=== PATIENT | female | born 1950 | race Two or more races ===

== ENCOUNTER 2018-09-11 20:25 | Emergency (ER) | payer MEDICARE, BC ==
[~2018-09-11] VITALS: Ht 154.9 cm; Wt 59.0 kg
--- NOTE | 2018-09-11 20:49 | NUR ---
NEAR SYNCOPAL EPISODE WHILE HAVING DINNER. -TRAUMA. +N/V INSURANCE SALES ASSOCIATE. PT STATED DURING DINNER, FELT DIZZY, AND COLD SWEATS. PER EMS, PT WAS HYPOTENSIVE WITH SYS BP IN THE HIGH 90'S. PT STATES SHE HAS NO SOB, -CP, -N/V AT TIME OF ARRIVAL, - DIZZINESS. PT PLACED ON BIG DATA ADMIN AND POX. PT SAFETY AND COMFORT MEASURES IN PLACE. NO S.S OF ACUTE DISTRESS NOTED. RR EVEN AND UNLABORED. MD BEDSIDE FOR EVAL. FAMILY BEDSIDE WITH PT.
[2018-09-11 21:08] LABS: BASOPHILS # (AUTO) 0.1 /CMM (0.0-0.2); HEMOGLOBIN 12.4 g/dL (11.5-14.8); LYMPHOCYTES # (AUTO) 2.7 /CMM (0.8-4.8); NEUTROPHILS # (AUTO) 5.9 /CMM (1.8-8.9); RED BLOOD CELL COUNT(AUTO) 6.08 MIL/uL (4.0-5.2); WHITE BLOOD COUNT (AUTO) 9.6 K/uL (4.3-11.0)
[2018-09-11 21:17] LABS: BASOPHILS % (AUTO) 0.9 % (0.0-2.0); EOSINOPHILS % (AUTO) 3.2 % (0.0-6.0); HEMATOCRIT 38 % (33-45); LYMPHOCYTES % (AUTO) 27.8 % (20.0-44.0); MEAN CORPUSCULAR HGB CONC 32 g/dl (31.0-36.0); MEAN CORPUSCULAR VOLUME 63 fL (82-100); MONOCYTES # (AUTO) 0.7 /CMM (0.1-1.30); MONOCYTES % (AUTO) 7.2 % (2.0-12.0); NEUTROPHILS % (AUTO) 60.9 % (43.0-81.0); PLATELET COUNT (AUTO) 230 /CMM (150-450)
[2018-09-11 21:20] LABS: CALCIUM, SERUM 8.9 mg/dL (8.5-10.1); CARBON DIOXIDE 28 mmol/L (21-32); CHLORIDE 103 mmol/L (98-107); CREATININE 0.9 mg/dL (0.6-1.3); GLUCOSE 114 mg/dL (74-106); POTASSIUM 4.2 mmol/L (3.5-5.1); SODIUM SERUM 139 mmol/L (136-145); UREA NITROGEN, BLOOD 18 mg/dL (7-18)
[2018-09-11] MEDS ORDERED: IV NS 0.9% 1,000 ML IV ONE (21:30)
[2018-09-11 22:02] LABS: EOSINOPHILS % (MANUAL) 3 % (0-4); LYMPHOCYTES % (MANUAL) 25 % (16-48); MONOCYTES % (MANUAL) 6 % (0-11.0); NEUTROPHILS % (MANUAL) 66 (42-76)
--- NOTE | 2018-09-11 22:27 | NUR ---
Patient discharged to home in stable condition. Written and verbal after care instructions given. Patient verbalizes understanding of instruction.IV removed. Catheter intact and site benign. Pressure and 4x4 applied to site. No bleeding noted. PT PROVIDED WITH CRUTCHES. PT AMBULATED OUT WITH CRUTCHES AND THE HELP OF . NO S/S OF DISTRESS NOTED UPON DISCHARGE
[2018-09-11 22:28] VITALS: BP 115/77
== END 2018-09-11 22:29 | disposition home or self-care (01) ==
LOC: ER 20:26
DX: R55 Syncope and collapse (principal); G43.909 Migraine, unspecified, not intractable, without status migrainosus; R00.1 Bradycardia, unspecified; Z98.890 Other specified postprocedural states; Z88.0 Allergy status to penicillin; Z88.1 Allergy status to other antibiotic agents
CPT/HCPCS: 36415; 80048-TC; 84484-TC; 85025-TC; J7030

== ENCOUNTER 2019-01-24 21:17 | Inpatient (IN) | payer MEDICARE, BC ==
[~2019-01-24] VITALS: Ht 154.9 cm; Wt 59.0 kg
--- NOTE | 2019-01-24 21:32 | NUR ---
TANIA FROM HOME W/ . AAOX4. NO SOB NOTED, BREATHING EVEN AND ULABORED. C/O CHEST PAIN STARTED @ 6PM. PT DESCRIBES PAIN SHARP PAIN IN THE MID CHEST RADIATING TO THE BACK RATES IT @ 8/10 WHEN IT HAPPENED BUT NO PAIN PRESENT UPON ASSESSMENT BUT C/O CHEST HEAVINESS. PT REPORTS TAKING MAALOX W/O RELIEF AND REPORTS THAT THE FEELING IS DIFERENT FROM AN UPSET STOMACH. PT ALSO REPORTS TAKING 2 NITRO AND ANOTHER ONE UPON PARAMEDICS ARRIVAL. PT ALSO REPORT TAKING 4 BABY ASPIRIN COMBAT SYSTEMS OPERATOR. THIS IS THE FIRST TIME THIS PAIN WAS FELT BY PT. PAIN ARRIVED WITH IV LINE ON R HAND 20G. PLACED ON MONITOR. EKG DONE. TO ER BED 9. @ BEDSIDE. AWAITING FURTHER ORDERS
--- NOTE | 2019-01-24 21:32 | NUR ---
TANIA FROM HOME W/ . AAOX4. NO SOB NOTED, BREATHING EVEN AND ULABORED. C/O CHEST PAIN STARTED @ 6PM. PT DESCRIBES PAIN SHARP PAIN IN THE MID CHEST RADIATING TO THE BACK RATES IT @ 8/10 WHEN IT HAPPENED BUT NO PAIN PRESENT UPON ASSESSMENT BUT C/O CHEST HEAVINESS. PT REPORTS TAKING MAALOX W/O RELIEF AND REPORTS THAT THE FEELING IS DIFERENT FROM AN UPSET STOMACH. PT ALSO REPORTS TAKING 2 NITRO AND ANOTHER ONE UPON PARAMEDICS ARRIVAL. PT ALSO REPORT TAKING 4 BABY ASPIRIN MEDICAL OPERATIONS SUPERVISOR. THIS IS THE FIRST TIME THIS PAIN WAS FELT BY PT. ARRIVED WITH IV LINE ON R HAND 20G. PLACED ON MONITOR. EKG DONE. TO ER BED 9. @ BEDSIDE. AWAITING FURTHER ORDERS
--- NOTE | 2019-01-24 21:32 | NUR ---
Note undone in EDM - 01/24/19 at 2137 by ANKITA BIBRA FROM HOME W/ . AAOX4. NO SOB NOTED, BREATHING EVEN AND ULABORED. C/O CHEST PAIN STARTED @ 6PM. PT DESCRIBES PAIN SHARP PAIN IN THE MID CHEST RADIATING TO THE BACK RATES IT @ 8/10 WHEN IT HAPPENED BUT NO PAIN PRESENT UPON ASSESSMENT BUT C/O CHEST HEAVINESS. PT REPORTS TAKING MAALOX W/O RELIEF AND REPORTS THAT THE FEELING IS DIFERENT FROM AN UPSET STOMACH. PT ALSO REPORTS TAKING 2 NITRO AND ANOTHER ONE UPON PARAMEDICS ARRIVAL. PT ALSO REPORT TAKING 4 BABY ASPIRIN DIRECTOR OF APPLICATION DEVELOPMENT. THIS IS THE FIRST TIME THIS PAIN WAS FELT BY PT. ARRIVED WITH IV LINE ON R HAND 20G. PLACED ON MONITOR. EKG DONE. TO ER BED 9. @ BEDSIDE. AWAITING FURTHER ORDERS
[2019-01-24] MEDS ORDERED: MAG HYDROX/AL HYDROX/SIMETH 30 ML UDC ONE (21:54)
[2019-01-24] MEDS ORDERED: MAG HYDROX/AL HYDROX/SIMETH 30 ML UDC PO ONE (22:00)
[2019-01-24 22:03] LABS: BASOPHILS # (AUTO) 0.1 /CMM (0.0-0.2); HEMATOCRIT 37 % (33-45); HEMOGLOBIN 11.8 g/dL (11.5-14.8); LYMPHOCYTES # (AUTO) 2.5 /CMM (0.8-4.8); LYMPHOCYTES % (AUTO) 38.7 % (20.0-44.0); MEAN CORPUSCULAR HGB CONC 32 g/dl (31.0-36.0); MEAN CORPUSCULAR VOLUME 63 fL (82-100); MONOCYTES # (AUTO) 0.5 /CMM (0.1-1.30); MONOCYTES % (AUTO) 8.3 % (2.0-12.0); NEUTROPHILS # (AUTO) 3.2 /CMM (1.8-8.9); PLATELET COUNT (AUTO) 222 /CMM (150-450); RED BLOOD CELL COUNT(AUTO) 5.81 MIL/uL (4.0-5.2); WHITE BLOOD COUNT (AUTO) 6.4 K/uL (4.3-11.0)
[2019-01-24 22:14] LABS: CALCIUM, SERUM 8.9 mg/dL (8.5-10.1); CARBON DIOXIDE 27 mmol/L (21-32); CHLORIDE 105 mmol/L (98-107); CREATININE 0.6 mg/dL (0.6-1.3); GLUCOSE 116 mg/dL (74-106); POTASSIUM 3.6 mmol/L (3.5-5.1); SODIUM SERUM 139 mmol/L (136-145); UREA NITROGEN, BLOOD 17 mg/dL (7-18)
[2019-01-24 22:20] LABS: ALANINE AMINOTRANSFERASE 24 U/L (12-78); ALBUMIN 3.7 g/dL (3.4-5.0); ALKALINE PHOSPHATASE 36 U/L (46-116); ASPARTATE AMINOTRANSFERASE 14 U/L (15-37); BILIRUBIN,DIRECT 0.1 mg/dL (0.0-0.2); BILIRUBIN,TOTAL 0.5 mg/dL (0.2-1.0); TOTAL PROTEIN, SERUM 6.9 g/dL (6.4-8.2)
--- NOTE | 2019-01-24 22:24 | NUR ---
pt ambulated to bathroom on steady gait with SBA
[2019-01-24 22:47] LABS: EOSINOPHILS % (MANUAL) 3 % (0-4); LYMPHOCYTES % (MANUAL) 37 % (16-48); MONOCYTES % (MANUAL) 11 % (0-11.0); NEUTROPHILS % (MANUAL) 49 (42-76)
[2019-01-24] MEDS ORDERED: IOHEXOL-350 100 ML VIAL IV ONE (23:04)
[2019-01-24] MEDS ORDERED: CT SWABBABLE VALVE TRANS SET 1 EA INFUS.SET MC ONE (23:04)
[2019-01-24] MEDS ORDERED: IV NS 0.9% 250 ML IV ONE (23:04)
--- NOTE | 2019-01-25 01:00 | NUR ---
CALLED RN SUP FOR TELE BED.
--- NOTE | 2019-01-25 01:04 | NUR ---
PT ASSIGNED TO BED 310-2
--- NOTE | 2019-01-25 01:10 | NUR ---
CALLED [facility] FOR PANEL ADMISSION. WAITING FOR FINISH FILER GUTIERREZ CALL BACK.
--- NOTE | 2019-01-25 01:22 | NUR ---
2ND CALL TO [facility] FOR PANEL ADMISSION. WAITING FOR BACON SKINNER GUTIERREZ CALL BACK.
--- NOTE | 2019-01-25 01:25 | NUR ---
SHANTELL GUTIERREZ SPEAKING TO DR. LARA REGARDING ADMISSION/ PLAN OF CARE.
--- NOTE | 2019-01-25 01:28 | NUR ---
REPORT GIVEN TO FIDELIA TERRY FOR FAIZA. PT GOING TO 310-2 TELE
[2019-01-25 01:30] VITALS: BP 112/65
[2019-01-25] MEDS ORDERED: HYDROCODONE/APAP 5/325MG 1 EACH TABLET PO PRN (01:30)
[2019-01-25] MEDS ORDERED: MAGNESIUM HYDROXIDE 30 ML UDC PO PRN (01:30)
[2019-01-25] MEDS ORDERED: Z GUARD REMEDY 2 OZ OINT TP PRN (01:30)
[2019-01-25] MEDS ORDERED: MAG HYDROX/AL HYDROX/SIMETH 30 ML UDC PO PRN (01:30)
[2019-01-25] MEDS ORDERED: ONDANSETRON HCL/PF 4 MG/2 ML VIAL IVP PRN (01:30)
--- NOTE | 2019-01-25 01:32 | NUR ---
PT TRANSPORTED TO UNIT WITH RN AND EMT AT BEDSIDE W/ ACLS PROTOCOL. NAD NOTED DURING TRANSPORT.
--- NOTE | 2019-01-25 01:45 | NUR ---
RN ADMITTING NOTES Pt ARRIVED TO THE FLOOR VIA GURNEY. ON SQUARING MACHINE OPERATOR. NO S/S OF ACUTE DISTRESS OR SOB NOTED. Pt IS A/OX4, VERBAL, ABLE TO MAKE NEEDS KNOWN. WITH Pt AT BEDSIDE. IV ACCESS ON RT HAND #20G, SL. ON TELE MONITOR, SR 70. Pt STATES SHE NO LONGER HAS CP. SAFETY MEASURES IN PLACE. BED LOW, LOCKED, HOB ELEVATED, SIDE RAILS UP, CALL LIGHT AND BEDSIDE TABLE WITHIN REACH. WILL CONTINUE TO MONITOR Pt's CONDITION AND SAFETY THROUGHOUT THE NIGHT.
[2019-01-25 02:00] VITALS: BP 112/65
[2019-01-25] MEDS: ACETAMINOPHEN 325 MG TABLET PO PRN ×2 (02:31→13:45)
[2019-01-25] MEDS ORDERED: CYCL10TA9 PO (02:52)
[2019-01-25] MEDS ORDERED: FAMO-131 PO (02:52)
[2019-01-25] MEDS ORDERED: ALPR0.25 PO (02:52)
[2019-01-25] MEDS ORDERED: PROP80CA2 PO (02:52)
[2019-01-25 04:00] VITALS: BP 110/69
[2019-01-25] MEDS ORDERED: FAMOTIDINE (20 MG) 20 MG TABLET PO PRN (05:00)
[2019-01-25] MEDS ORDERED: ALPRAZOLAM 0.25 MG TABLET PO PRN (05:15)
[2019-01-25] MEDS ORDERED: NITROGLYCERIN 0.4 MG/TAB BOTTLE SL PRN (05:30)
[2019-01-25 06:43] LABS: WHITE BLOOD COUNT (AUTO) 5.4 K/uL (4.3-11.0)
[2019-01-25 06:49] LABS: BASOPHILS % (AUTO) 0.5 % (0.0-2.0); EOSINOPHILS % (AUTO) 2.8 % (0.0-6.0); HEMATOCRIT 38 % (33-45); HEMOGLOBIN 12.1 g/dL (11.5-14.8); LYMPHOCYTES # (AUTO) 2.3 /CMM (0.8-4.8); LYMPHOCYTES % (AUTO) 42.1 % (20.0-44.0); MEAN CORPUSCULAR HGB CONC 32 g/dl (31.0-36.0); MEAN CORPUSCULAR VOLUME 63 fL (82-100); MONOCYTES # (AUTO) 0.5 /CMM (0.1-1.30); MONOCYTES % (AUTO) 8.9 % (2.0-12.0); NEUTROPHILS # (AUTO) 2.5 /CMM (1.8-8.9); NEUTROPHILS % (AUTO) 45.7 % (43.0-81.0); PLATELET COUNT (AUTO) 216 /CMM (150-450); RED BLOOD CELL COUNT(AUTO) 6.01 MIL/uL (4.0-5.2)
--- NOTE | 2019-01-25 06:50 | NUR ---
RN CLOSING NOTES NO SIGNIFICANT CHANGES IN Pt's CONDITION. NO S/S OF ACUTE DISTRESS OR SEVERE SOB NOTED DURING THE NIGHT. NO C/O CP AT THIS TIME. Pt IS RESTING IN BED. RESPIRATIONS EVEN AND UNLABORED. ALL NEEDS MET AND ATTENDED TO. SAFETY MEASURES IN PLACE. TELE READING SR 74. WILL ENDORSE TO DAYSHIFT RN FOR Pt's FIAZA.
[2019-01-25 06:52] LABS: CALCIUM, SERUM 8.9 mg/dL (8.5-10.1); CARBON DIOXIDE 26 mmol/L (21-32); CHLORIDE 104 mmol/L (98-107); CREATININE 0.6 mg/dL (0.6-1.3); GLUCOSE 99 mg/dL (74-106); POTASSIUM 3.9 mmol/L (3.5-5.1); SODIUM SERUM 140 mmol/L (136-145); UREA NITROGEN, BLOOD 15 mg/dL (7-18)
--- NOTE | 2019-01-25 07:21 | NUR ---
TRAFFIC WAREHOUSE SUPERVISOR OPENING NOTES RECEIVED PATIENT ON BED ASLEEP BUT EASILY AROUSABLE, A/O X 4, RESPONSIVE TO ALL STIMULI, ABLE TO MAKE NEEDS KNOWN. RESPIRATION EVEN AND NON LABORED WITH NO PRESENCE OF ACUTE RESPIRATORY DISTRESS. ABDOMEN SOFT AND NON DISTENDED WITH ACTIVE BOWEL SOUNDS. SKIN WARM TO TOUCH AND DRY. DENIES PAIN AND DISCOMFORT. IV SITE AT RIGHT HAND WITH NO S/SX ON INFILTRATION, PATENT IN FLUSHING TELE MONITOR SHOWS SINUS RHYTHM 74. ALL CONCERNS ADDRESSED. PLACED CALL LIGHT WITHIN REACH FOR SAFETY. WILL CONTINUE TO MONITOR CARE.
[2019-01-25 08:00] VITALS: BP 90/60
[2019-01-25] MEDS ORDERED: ESTR1PAT31 TD (08:01)
[2019-01-25 08:09] LABS: BAND % (MANUAL) 2 % (0.0-5.0); EOSINOPHILS % (MANUAL) 3 % (0-4); LYMPHOCYTES % (MANUAL) 42 % (16-48); MONOCYTES % (MANUAL) 6 % (0-11.0); NEUTROPHILS % (MANUAL) 47 (42-76)
[2019-01-25] MEDS ORDERED: ENOXAPARIN SODIUM 40 MG/0.4 ML DISP.SYRIN SQ SCH (09:00)
[2019-01-25] MEDS ORDERED: PROPRANOLOL HCL 10 MG TABLET PO SCH (09:00)
--- NOTE | 2019-01-25 09:00 | NUR ---
HOSTESS HOST NOTES TELE MONITOR SOWS SR 86. PT SLEEPING COMFORTABLY.
[2019-01-25] MEDS ORDERED: PROG100C15 PO (10:39)
[2019-01-25 13:00] VITALS: BP 98/68
--- NOTE | 2019-01-25 13:00 | NUR ---
FLAT LOCK OPERATOR NOTES PATIENT INFORMED REGARDING CONTINUOUS IMPROVEMENT ANALYST NOTES OF DC CARDIAC MONITORING DUE TO NEGATIVE RESULTS OF HEART PROBLEM, VERBALIZED UNDERSTANDING.
--- NOTE | 2019-01-25 15:56 | NUR ---
CAMPUS ADMINISTRATOR NOTES PT SEEN BY SANDOVAL STINSON. DC PLANNING TODAY D/T NEGATIVE RESULT OF HEART ATTACK
--- NOTE | 2019-01-25 17:45 | NUR ---
M/S WELDER TOOL AND DIE NOTES PT DISCHARGED ACCOMPANIED BY DAUGHTER, ASSISTED BY HEIDI) TO PARKING LOT. A/O X 4 AND ABLE TO MAKE NEEDS KNOWN. NO SOB NOTED. NO CHEST PAIN NOTED. DENIES PAIN AND DISCOMFORT. ABD SOFT AND NON DISTENDED WITH ACTIVE BOWEL SOUNDS.E XIT CARE PROVIDED WITH AL CONCERNS ATTENDED. IV SITE TAKEN OFF AND TOLERATED WELL, BLEEDING ONSITE OCCUR DUE TO BLOOD THINNER MEDICATION, PLACED PRESSURE. PER PATIENT SHE WILL PRESS THE SITE WITH GAUZE SINCE HER DAUGHTER IS WAITING AT THE PARKING LOT, RISK AND BENEFITS EXPLAINED AND VERBALIZED UNDERSTANDING. SKIN REMAINED INTACT AND DRY. PT DISCHARGE IN SAFE AND STABLE CONDITION.
[2019-01-25] MEDS ORDERED: CYCLOBENZAPRINE 10 MG TABLET PO SCH (22:00)
[2019-01-25] MEDS ORDERED: ALPRAZOLAM 0.25 MG TABLET PO SCH (22:00)
== END 2019-01-25 17:45 | disposition home or self-care (01) | DRG 384 ==
LOC: ER 21:17 → TELE 01-25 01:18
PROVIDERS: ADMIT Nurse Practitioner Acute Care; ATTEND Nurse Practitioner Acute Care
DX: K27.9 Peptic ulcer, site unspecified, unspecified as acute or chronic, without hemorrhage or perforation (principal); K22.4 Dyskinesia of esophagus; F41.9 Anxiety disorder, unspecified; D50.9 Iron deficiency anemia, unspecified; R51 Headache; Z88.0 Allergy status to penicillin
CPT/HCPCS: 36415; 71045-TC; 80048-TC; 80076-TC; 83690-TC; 84484-TC; 85025-TC; 87081-TC; 93307-TC; G0378; J1650; J7050; Q9967